=== PATIENT | female | born 1975 | race Caucasian/White ===

== ENCOUNTER 2022-11-27 12:28 | Emergency (ER) | payer BC, SELFPAY ==
[2022-11-27 12:34] VITALS: BP 115/74; PULSE 96; RESP 18; TEMP 36.5; O2SAT 100; BMI 23.7
--- NOTE | 2022-11-27 12:48 | CRLHL7_ITS ---
For Patients: As a result of the Century Cures Act, medical imaging exams and procedure reports are released immediately into your electronic medical record. You may view this report before your referring provider. If you have questions, please contact your health care provider. INDICATION: Lower abdominal pain.. TECHNIQUE: Ultrasound pelvis transabdominal and transvaginal for better assessment or to better visualize the endometrium. Real-time sonographic images with spectral and color Doppler imaging of the ovaries were obtained. COMPARISON: None. FINDINGS: Uterus: 9.1 x 4.3 x 5.0 cm. Normal echotexture of the myometrium. No masses. A few tiny anechoic cysts are identified in the myometrium near the fundus. Endometrium: Transvaginal imaging was performed to better evaluate the endometrium. Endometrial thickness measures 11 mm. No sign of endometrial mass or fluid. Right ovary measures 3.5 x 1.9 x 2.5 cm and left ovary measures 3.9 x 1.9 x 2.6 cm. There is a 2.1 x 1.7 x 2.3 centimeter cyst in the left ovary with internal heterogeneous echogenicity. Normal arterial and venous blood flow is demonstrated in both ovaries. Cul-de-sac: Trace free fluid. IMPRESSION: Probable left ovarian hemorrhagic cyst. A few tiny cysts in the fundal myometrium of questionable clinical significance. Findings may be seen in early or mild adenomyosis although no other findings to support this are noted. Dictated by Navjot Ruano MD @ 11/27/2022 2:22:01 PM (Electronically Signed)
--- NOTE | 2022-11-27 12:50 | ED.GENADULT ---
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 She has had pelvic ovarian cysts before and states it feels similar. She is about mid cycle in her menstruations cycle. She has had no dysuria frequency diarrhea no chest pain, no breathing problem. No fevers. No nausea or vomiting. The patient reports no vaginal bleeding or discharge. She describes pain is present all the time but worsening in improving at times it is across her lower abdomen primarily she points a little bit more to the right of midline. She has had no intra-abdominal surgery of significance. She had takes several medications for depression anxiety. Related Data Home Medications Medication Instructions Recorded Confirmed alprazolam 0.25 mg tablet mg 11/27/22 fluoxetine 20 mg tablet mg 11/27/22 quetiapine 25 mg tablet mg 11/27/22 Previous Rx's Medication Instructions Recorded ketorolac 10 mg tablet 10 mg PO Q8H PRN pain #10 tabs 11/27/22 Allergies Allergy/AdvReac Type Severity Reaction Status Date / Time No Known Drug Allergies Allergy Verified 11/27/22 12:38 Review of Systems Status of ROS: Reports: 10 or more systems reviewed and unremarkable except as noted in History and below PFSH [facility] Social History Smoking Status: Never smoker How often do you have a drink containing alcohol: never AUDIT-C Alcohol total score: 0 Non-prescribed substance use: denies use service: No Exam Narrative: Exam Narrative: Objective: Vital signs unremarkable O2 sat is falsely reported at 199, which I assume is 99. HEENT is unremarkable no facial asymmetry no scleral icterus pulses regular abdomen benign soft since there is some very mild tenderness in her periumbilical area and just below umbilicus right greater than left, no rebound no peritonitis no masses. Denies back pain Extremities good perfusion neurologic nonfocal Skin warm and dry Const: Vital Signs, click to edit/add: Vital Signs - 24 hr 11/27/22 12:34 Temperature 97.7 F Pulse Rate [Right Pulse Oximeter] 96 Respiratory Rate 18 Blood Pressure [Ri ght Upper Arm] 115/74 Pulse Oximetry 100 Oxygen Delivery Me thod Room Air Course Vital Signs Vital signs: Initial Vital Signs Temperature 97.7 F 11/27/22 12:34 Temperature Source Temporal Artery Scan 11/27/22 12:34 Pulse Rate 96 11/27/22 12:34 Respiratory Rate 18 11/27/22 12:34 Blood Pressure 115/74 11/27/22 12:34 Blood Pressure Mean 87 11/27/22 12:34 Blood Pressure Position Sitting 11/27/22 12:34 Pulse Oximetry 100 11/27/22 12:34 Oxygen Delivery Method 11/27/22 12:34 Vital Signs Temperature 97.7 F 11/27/22 12:34 Pulse Rate 96 11/27/22 12:34 Respiratory Rate 18 11/27/22 12:34 Blood Pressure 115/74 11/27/22 12:34 Pulse Oximetry 100 11/27/22 12:34 Oxygen Delivery Method 11/27/22 12:34 Temperature 97.7 F 11/27/22 12:34 Pulse Rate 96 11/27/22 12:34 Respiratory Rate 18 11/27/22 12:34 Blood Pressure 115/74 11/27/22 12:34 Pulse Oximetry 100 11/27/22 12:34 Oxygen Delivery Method 11/27/22 12:34 Medical Decision Making MDM Narrative Medical decision making narrative: Patient is a 47-year-old female with 24 hour history of lower abdominal pain mid cycle in her menstrual cycle, with some lower abdominal radiation to her back. Will check a urinalysis to rule out kidney stone, ultrasound to rule out ovarian cyst or torsion. Will check laboratory studies LFT electrolytes CBC CRP. Will give Toradol IV as well as IV fluid, she reports her sick for another has had a vasectomy so is unlikely, will for completeness do a test. Disposition pending findings above. Addendum: Patient feels markedly better after the Toradol. The patient has a left hemorrhagic cyst. Good blood flow in both ovaries. No evidence of torsion. Given her significant pain relief will wait for additional lab testing get back in the discharge her home on Toradol as needed, Tylenol as needed, fluids rest light activity off work for couple days, recheck with primary care in 48 hours if not completely resolved or other changes. Lab Data Labs: Lab Results 11/27/22 11/27/22 11/27/22 Range/Units 13:25 13:25 13:25 WBC 7.51 (4.50-11.00) K/uL RBC 4.53 (4.00-5.20) m/uL Hgb 13.5 (12.0-16.0) gm/dL Hct 41.0 (33.0-51.0) % MCV 91 (80-100) fL MCH 30 (26-34) pg MCHC 33 (32-36) gm/dL RDW Coeff of Toan 12.9 (11.5-15.5) % Plt Count 260 (140-440) K/uL Neut % (Auto) 65.1 (42.0-72.0) % Lymph % (Auto) 24.5 (20-44) % Glades % (Auto) 6.9 (0.0-11.0) % Eos % (Auto) 2.9 (0.0-7.0) % Baso % (Auto) 0.5 (0.0-3.0) % Neut # (Auto) 4.88 (1.7-7.0) K/uL Lymph # (Auto) 1.84 (0.90-2.90) K/uL Glades # (Auto) 0.50 (0.00-0.90) K/UL Eos # (Auto) 0.22 (0.00-0.50) K/uL Baso # (Auto) 0.04 (0.00-0.30) K/uL Sodium 140 (135-149) mmol/L Potassium 3.9 (3.6-5.1) mmol/L Chloride 103 (96-114) mmol/L Carbon Dioxide 30 (20-32) mmol/L BUN 14 (5-24) mg/dL Creatinine 0.8 (0.5-1.5) mg/dL Estimated Creat Clear 94.01 Estimated GFR 91 ml/min Glucose 91 (60-115) mg/dL Calcium 8.8 (8.4-10.6) mg/dL Total Bilirubin 0.4 (0.1-1.5) mg/dL Direct Bilirubin 0.2 (0.0-0.5) mg/dL AST 28 (12-35) U/L ALT 31 (4-35) U/L Alkaline Phosphatase 55 (40-150) U/L C-Reactive Protein < 0.5 L (0.5-1.0) mg/dL Total Protein 7.5 (6.0-8.3) g/dL Albumin 4.2 (3.3-5.0) g/dL Amylase 109 H (18-89) U/L HCG, Qual Negative (Negative) Urine Color (Yellow) Urine Appearance (Clear) Urine pH (5.0-8.5) Ur Specific [place] (1.000-1.030) Urine Protein (Negative) Urine Glucose (UA) (Negative) Urine Ketones (Negative) Urine Blood (Negative) Urine Nitrite (Negative) Urine Bilirubin (Negative) Urine Urobilinogen (0.2-1.0) Ur Leukocyte Esterase (Negative) Urine RBC (0-2) Urine WBC (0-5) Ur Squamous Epith Cells (None-Few) Urine Bacteria (None) 11/27/22 Range/Units 13:55 WBC (4.50-11.00) K/uL RBC (4.00-5.20) m/uL Hgb (12.0-16.0) gm/dL Hct (33.0-51.0) % MCV (80-100) fL MCH (26-34) pg MCHC (32-36) gm/dL RDW Coeff of Toan (11.5-15.5) % Plt Count (140-440) K/uL Neut % (Auto) (42.0-72.0) % Lymph % (Auto) (20-44) % Glades % (Auto) (0.0-11.0) % Eos % (Auto) (0.0-7.0) % Baso % (Auto) (0.0-3.0) % Neut # (Auto) (1.7-7.0) K/uL Lymph # (Auto) (0.90-2.90) K/uL Glades # (Auto) (0.00-0.90) K/UL Eos # (Auto) (0.00-0.50) K/uL Baso # (Auto) (0.00-0.30) K/uL Sodium (135-149) mmol/L Potassium (3.6-5.1) mmol/L Chloride (96-114) mmol/L Carbon Dioxide (20-32) mmol/L BUN (5-24) mg/dL Creatinine (0.5-1.5) mg/dL Estimated Creat Clear Estimated GFR ml/min Glucose (60-115) mg/dL Calcium (8.4-10.6) mg/dL Total Bilirubin (0.1-1.5) mg/dL Direct Bilirubin (0.0-0.5) mg/dL AST (12-35) U/L ALT (4-35) U/L Alkaline Phosphatase (40-150) U/L C-Reactive Protein (0.5-1.0) mg/dL Total Protein (6.0-8.3) g/dL Albumin (3.3-5.0) g/dL Amylase (18-89) U/L HCG, Qual (Negative) Urine Color Yellow (Yellow) Urine Appearance Clear (Clear) Urine pH 7.0 (5.0-8.5) Ur Specific [place] 1.020 (1.000-1.030) Urine Protein Negative (Negative) Urine Glucose (UA) Negative (Negative) Urine Ketones Negative (Negative) Urine Blood Negative (Negative) Urine Nitrite Negative (Negative) Urine Bilirubin Negative (Negative) Urine Urobilinogen 0.2 (0.2-1.0) Ur Leukocyte Esterase Negative (Negative) Urine RBC 0-2 (0-2) Urine WBC 0-2 (0-5) Ur Squamous Epith Cells Few (None-Few) Urine Bacteria None (None) Discharge Plan Discharge Clinical Impression: Abdominal pain, Hemorrhagic cyst of left ovary Patient Disposition: Home, Self-Care Condition: Improved Additional Instructions: Rest, light activity, Tylenol or Toradol as needed, off work for couple of days no written. Recheck with primary care and update a couple of days. Return to ED sooner problems or concerns. Activity Level: Light activity Discharge Diet: Regular Prescriptions: New ketorolac 10 mg tablet 10 mg PO Q8H PRN (Reason: pain) Qty: 10 0RF No Action quetiapine 25 mg tablet alprazolam 0.25 mg tablet Label Comments: TAKE 1 TABLET BY MOUTH THREE TIMES DAILY NEEDED FOR ANXIETY fluoxetine 20 mg tablet Label Comments: TAKE 2 TABLETS BY MOUTH EVERY MORNING ALONG WITH 60 MG TABLET FOR 100 MG TOTAL DAILY Stand Alone Forms: [facility] Info Instructions
[2022-11-27] MEDS: KETOROLAC 30 MG/ML inj IVP (13:25)
[2022-11-27 13:33] LABS: Basophils Absolute Auto 0.04 K/uL (0.00-0.30); Basophils Percent Auto 0.5 % (0.0-3.0); Eosinophils Absolute Auto 0.22 K/uL (0.00-0.50); Eosinophils Percent Auto 2.9 % (0.0-7.0); Hemoglobin* 13.5 gm/dL (12.0-16.0); Immature Granulocytes Abs Auto 0.01 K/uL (0.00-0.30); Immature Granulocytes Pct Auto 0.1 %; Lymphocytes Absolute Auto 1.84 K/uL (0.90-2.90); Lymphocytes Percent Auto 24.5 % (20-44); Mean Corpuscular HGB Conc 33 gm/dL (32-36); Mean Corpuscular Hemoglobin 30 pg (26-34); Mean Corpuscular Volume 91 fL (80-100); Monocytes Percent Auto 6.9 % (0.0-11.0); Neutrophils Absolute Auto 4.88 K/uL (1.7-7.0); Neutrophils Percent Auto 65.1 % (42.0-72.0); Platelet Count* 260 K/uL (140-440); RDW Coefficient of Variation % 12.9 % (11.5-15.5); Red Blood Count 4.53 m/uL (4.00-5.20); White Blood Count* 7.51 K/uL (4.50-11.00)
[2022-11-27 13:42] LABS: Slide Review Reflex No
[2022-11-27] MEDS: 0.9 % SODIUM CHLORIDE 1000 ml 1,000 ML 6000 ML IV (13:52)
[2022-11-27 14:24] LABS: Appearance Urine Clear (Clear); Bilirubin Urine Negative (Negative); Blood Urine Negative (Negative); Color Urine Yellow (Yellow); Glucose Urine Negative (Negative); Ketones Urine Negative (Negative); Leukocyte Esterase Urine Negative (Negative); Nitrite Urine Negative (Negative); Protein Urine Negative (Negative); Urobilinogen Urine 0.2 (0.2-1.0)
[2022-11-27 14:33] LABS: RBC Urine 0-2 (0-2); Squamous Epithelial Cell Urine Few (None-Few); WBC Urine 0-2 (0-5)
[2022-11-27 14:36] LABS: Albumin* 4.2 g/dL (3.3-5.0); Chloride* 103 mmol/L (96-114)
[2022-11-27 14:37] LABS: Potassium* 3.9 mmol/L (3.6-5.1); Sodium* 140 mmol/L (135-149)
[2022-11-27 14:39] LABS: Amylase* 109 U/L (18-89); Aspartate Amino Transferase* 28 U/L (12-35); Bilirubin Direct* 0.2 mg/dL (0.0-0.5); Bilirubin Total* 0.4 mg/dL (0.1-1.5); Carbon Dioxide* 30 mmol/L (20-32); Creatinine* 0.8 mg/dL (0.5-1.5); Est. Creatinine Clearance* 94.01; Estimated Glomerular Filt Rate 91 ml/min; Total Protein* 7.5 g/dL (6.0-8.3)
[2022-11-27 14:40] LABS: Alanine Aminotransferase* 31 U/L (4-35); Alkaline Phosphatase* 55 U/L (40-150); Blood Urea Nitrogen* 14 mg/dL (5-24); Calcium* 8.8 mg/dL (8.4-10.6); Glucose* 91 mg/dL (60-115)
[2022-11-27 14:42] LABS: C Reactive Protein* < 0.5 mg/dL (0.5-1.0)
[2022-11-27 14:46] LABS: HCG Qualitative Serum* Negative (Negative)
== END 2022-11-27 15:18 | disposition home or self-care (01) ==
PROVIDERS: Emergency Provider Family Medicine; PCP Family Medicine
DX: N83.202 Unspecified ovarian cyst, left side (principal); R10.9 Unspecified abdominal pain
CPT/HCPCS: 36415; 76830; 80048; 80076; 81001; 82150; 84703; 85025; 86140; 87086; 93976; 96361; 96374; 99284; J1885; J7030

== ENCOUNTER 2023-06-12 14:52 | Emergency (ER) | payer OTHER, SELFPAY ==
[2023-06-12] VITALS (22 sets, daily range): BP systolic 90–120; BP diastolic 50–84; PULSE 75–97; RESP 189; TEMP 36.6; O2SAT 77–100; BMI 25.1
[2023-06-12] MEDS: EPINEPHrine 0.3 MG PEN IM (14:57)
[2023-06-12] MEDS: 0.9 % SODIUM CHLORIDE 1000 ml 1,000 ML IV (14:58)
[2023-06-12] MEDS: NALOXONE 1 MG/ML SYRINGE 2 MG IV (15:02)
[2023-06-12 15:16] LABS: Glucose, Point-of-Care* 108 mg/dl (60-115)
[2023-06-12 15:16] LABS: HCO3 VBG 21 mmol/L (21-28); Lactate* 2.5 mmol/L (0.5-1.9); PCO2 VBG 25 mmHG (40-50); PO2 VBG 89.4 mmHG (25-47)
[2023-06-12 15:17] LABS: Sodium* 135 mmol/L (135-149)
[2023-06-12 15:18] LABS: Basophils Percent Auto 0.3 % (0.0-3.0); Eosinophils Percent Auto 1.1 % (0.0-7.0); Hematocrit 40.8 % (33.0-51.0); Hemoglobin* 13.5 gm/dL (12.0-16.0); Immature Granulocytes Pct Auto 0.3 %; Lymphocytes Percent Auto 32.1 % (20-44); Mean Corpuscular HGB Conc 33 gm/dL (32-36); Mean Corpuscular Hemoglobin 30 pg (26-34); Mean Corpuscular Volume 90 fL (80-100); Monocytes Percent Auto 7.2 % (0.0-11.0); Platelet Count* 336 K/uL (140-440); RDW Coefficient of Variation % 12.7 % (11.5-15.5); Red Blood Count 4.56 m/uL (4.00-5.20); White Blood Count* 14.21 K/uL (4.50-11.00)
[2023-06-12 15:19] LABS: Slide Review Reflex No
[2023-06-12] MEDS: LORazepam 2 MG/ML inj 1 MG IVP (15:19)
--- NOTE | 2023-06-12 15:31 | ED_ITS ---
HPI - General Adult General Date Seen: 06/12/23 Chief complaint: Altered Mental Status Stated complaint: trouble breathing Time Seen by Provider: 06/12/23 15:16 History of Present Illness HPI narrative: 47-year-old female who arrived to the ER today by private car. She was brought in by her roommate. History is limited. Initial history is from her roommate. 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 She had come to tell him that she had taken something and was reacting. He brought her here. In route she was having trouble breathing, sweaty, confused, drowsy. As far as he knows he does not know what medication she is on, or if she has any allergies. Unknown if she uses any substances. Unclear what she might be reacting to. No definite known chemicals or fertilizer ears or other substances in their home. After initial resuscitation patient is able to provide more history. 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 She had visited someone in their home today but does not know she was exposed to anything. She went to [employer] and got a expensive chocolate bar that was made within the grocery store. As far she knows it did not contain knots. It is impossible to exclude that it was there were nuts in it or that it might have been exposed exposed or made an environment with knots. After eating a chocolate bar she began to feel tingling as in her throat. She knew she was reacting. She began to have hives on her body including her chest, back, and upper legs. She took Benadryl 50 mg p.o. prior to arrival. Related Data Home Medications Medication Instructions Recorded Confirmed alprazolam 0.25 mg tablet mg 11/27/22 fluoxetine 20 mg tablet mg 11/27/22 quetiapine 25 mg tablet mg 11/27/22 Previous Rx's Medication Instructions Recorded ketorolac 10 mg tablet 10 mg PO Q8H PRN pain #10 tabs 11/27/22 diphenhydramine HCl 25 mg capsule 25 mg PO Q6H PRN allergy symptoms 06/12/23 (Benadryl) #20 caps epinephrine 0.3 mg/0.3 mL 0.3 mg (0.3 mL) IM Q5-15M PRN 06/12/23 injection syringe anaphylaxis #2 ea prednisone 20 mg tablet 60 mg (3 x 20 mg) PO DAILY 3 days 06/12/23 #9 tabs Allergies Allergy/AdvReac Type Severity Reaction Status Date / Time No Known Drug Allergies Allergy Verified 11/27/22 12:38 Review of Systems Narrative: Limited [facility] Social History Smoking Status: Never smoker How often do you have a drink containing alcohol: never AUDIT-C Alcohol total score: 0 Non-prescribed substance use: denies use service: No Exam Narrative: Exam Narrative: Primary survey: A colon breathing spontaneously. No definite stridor but when she is breathing out she has a moany voice. I suspect this is probably voluntary stridor rather than true airway edema. No inspiratory stridor. She is moaning repetitively, ?help me, help me?. She is tachypneic. She is diaphoretic. However heart rate and blood pressure are normal. Tongue, and visualized posterior oropharynx are normal. No signs of edema. Face normal. B: Despite above findings, auscultation of bilateral lung sounds is clear. No wheezing. C: Initial blood pressure 96/50. Heart rate in the 70s once we get her on the monitor. Her skin is pale and diaphoretic. Hives noted on abdomen and thighs, possible allergic reaction. Epinephrine given immediately. D: Initially moaning, not answering questions. Responding only to painful stimuli. GCS = 8 no definite focal deficits. Pupils are mydriatic. Narcan 2 mg given-no response. Constitutional: Appears well-developed and well-nourished. Initially pale, diaphoretic, hyperventilating, moaning. After initial interventions including epinephrine and Narcan her hives resolved. She still has signs of excoriation on her body. Still moaning, tremulous. Appears to be anxious. Ativan 1 mg IV led to improvement. Decreased tremulousness, increase conversant allergy. History HENT: Head: Atraumatic. Nose: Nose normal. Mouth/Throat: Oral mucosa is clear and moist. no trismus. Pharynx normal. Tonsils symmetric. No tonsillar enlargement, erythema, or exudate. Eyes: Conjunctivae normal. EOM normal. Pupils equal, round, and reactive to light. No scleral icterus. Neck: Normal range of motion. Neck supple. No tracheal deviation present. Cardiovascular: Normal rate, regular rhythm. No gallop. No friction rub. No murmur heard. Symmetric radial artery pulses Pulmonary/Chest: Effort normal. No stridor. No respiratory distress. No wheezes. No rales. No rhonchi . No tenderness. Abdominal: Soft. Bowel sounds normal. No distension. No mass. No tenderness. No rebound. No guarding. Musculoskeletal: RUE: Normal range of motion. No tenderness. No deformity LUE: Normal range of motion. No tenderness. No deformity RLE: Normal range of motion. No edema. No tenderness. No deformity LLE: Normal range of motion. No edema. No tenderness. No deformity Lymph: No cervical adenopathy. Neurological: Initially very drowsy, confused, not following commands. GCS was 8. After initial resuscitation, hives resolved after epi. She was still very anxious, tremulous, confused. After Ativan she is more alert. She is able to provide history. She she becomes alert and oriented x3. She is able to open her eyes. More conversant. No focal deficits. Skin: Initially pale and diaphoretic. She did have scattered hives located on her lower abdomen, upper legs. She has evidence for excoriations on her chest under her breasts, on her flanks, and on her posterior/medial thighs.. Neck, face, head are normal- rash noted. Psychiatric: Initially very limited. Unable to initially obtain any information. After initial resuscitation and Ativan she is more calm and conversant. She is able to describe the HPI as above. Const: Vital Signs, click to edit/add: Vital Signs - 24 hr 06/12/23 15:07 06/12/23 15:33 06/12/23 15:34 Temperature 97.8 F Pulse Rate 81 82 Pulse Rate [Right] 75 Respiratory Rate 189 H Blood Pressure 120/52 L Blood Pressure [Ri ght Upper Arm] 90/50 L Pulse Oximetry 96 100 Oxygen Delivery Me thod Room Air 06/12/23 15:36 06/12/23 15:41 06/12/23 15:45 Temperature Pulse Rate 86 96 79 Pulse Rate [Right] Respiratory Rate Blood Pressure 114/84 112/69 Blood Pressure [Ri ght Upper Arm] Pulse Oximetry 100 93 100 Oxygen Delivery Me thod 06/12/23 15:46 06/12/23 15:51 06/12/23 15:56 Temperature Pulse Rate 79 79 81 Pulse Rate [Right] Respiratory Rate Blood Pressure 113/69 113/61 109/78 Blood Pressure [Ri ght Upper Arm] Pulse Oximetry 100 100 100 Oxygen Delivery Me thod 06/12/23 16:00 06/12/23 16:01 06/12/23 16:07 Temperature Pulse Rate 77 81 80 Pulse Rate [Right] Respiratory Rate Blood Pressure 115/66 112/71 Blood Pressure [Ri ght Upper Arm] Pulse Oximetry 77 L 100 100 Oxygen Delivery Me thod 06/12/23 16:12 06/12/23 16:33 Temperature Pulse Rate 82 Pulse Rate [Right] Respiratory Rate Blood Pressure 110/71 Blood Pressure [Ri ght Upper Arm] Pulse Oximetry 100 Oxygen Delivery Me thod Course Course Hospital Course: Recheck-improved after Ativan. Much calmer, less tremulous. Reevaluation(s) Reevaluation #1: Recheck-16 30. Patient looks 100% better. She is alert, calm, breathing easily, smiling. No tremulousness, anxiety. No trouble breathing. Vital stable. Was just up to the bathroom. It appears at this time that she was having an allergic reaction as clearly evidence by the hives present on initial exam and the residual excoriations. There is no residual hives. Suspect that her altered mental status was probably related to panic attack. Will hold off on a drug screen. Likely would not be of clinical benefit at this point. Urine sample discarded. Vital Signs Vital signs: Initial Vital Signs Temperature 97.8 F 06/12/23 15:07 Temperature Source Temporal Artery Scan 06/12/23 15:07 Pulse Rate 75 06/12/23 15:07 Pulse Rhythm Regular 06/12/23 15:07 Respiratory Rate 189 H 06/12/23 15:07 Blood Pressure 90/50 L 06/12/23 15:07 Blood Pressure Mean 63 L 06/12/23 15:07 Oxygen Delivery Method Room Air 06/12/23 15:07 Vital Signs Temperature 97.8 F 06/12/23 15:07 Pulse Rate 75 06/12/23 15:07 Respiratory Rate 189 H 06/12/23 15:07 Blood Pressure 90/50 L 06/12/23 15:07 Oxygen Delivery Method Room Air 06/12/23 15:07 Temperature 97.8 F 06/12/23 15:07 Pulse Rate 82 06/12/23 16:33 Respiratory Rate 189 H 06/12/23 15:07 Blood Pressure 110/71 06/12/23 16:12 Pulse Oximetry 100 06/12/23 16:33 Oxygen Delivery Method Room Air 06/12/23 15:07 Medical Decision Making MDM Narrative Medical decision making narrative: 47-year-old female brought to the ER today by her roommate for evaluation of altered mental status, trouble breathing, hives. Initial differential is quite broad. With signs of hives on her thighs, low back. She also had pale skin, diaphoresis, we were concerned about possible anaphylaxis. We administered IM epinephrine as soon as we will get the patient into her ER room and onto ER bed. While we were doing this we also got her on our monitor, pulse ox, got measured vital signs, placed on the hospital monitor, established IV. After the epinephrine her hives resolved. Her repeat skin exam is showed evidence for excoriations but no ongoing urticaria or hives. She also was quite altered, drowsy, confused. Differential included possible substance ingestion such as alcohol, opiate, or other drugs. Consider possible overdose. She did not have miosis. No response to empiric Narcan. Blood sugar normal. Remained not able to provide any further information about her medical history or what she might have ingested. We considered possible intracranial hemorrhage as a cause for altered mental status and considered CT but Yam[place] was clearing after Ativan, GCS is now improved and she is alert and oriented, will hold off on that imaging. No fever here to suggest meningitis or encephalitis. Workup does show evidence for leukocytosis with white count of 14.1. VBG shows a respiratory alkalosis with a pH of 753, pCO2 of 25. This likely reflects hyperventilation during presentation. BMP shows normal sodium of 135, normal potassium, slightly low bicarb at 18. Normal kidney function. LFTs are normal. Lactic acid mildly elevated 2.5. test negative. No reported history of seizures per the cover making machine operator. He saw her conversant at home, and she became progressively more drowsy EN route. No seizure activity here in the ER. Alcohol, salicylate, acetaminophen levels are negative. She has sinus rhythm on the monitor. Troponin negative. Discussed with my partner, Dr. Flaherty. Will monitor for additional hour after appy. If no recurrent symptoms, will discharge as per my plan. If she has recurrent hives or anaphylaxis symptoms, will require repeat treatment and disposition accordingly. Critical care time: Critical care time for this patient was 35 minutes. Time was spent in her initial evaluation and resuscitation, and multiple recurrent rechecks revealing her improvement. She presented with hives, pallor and diaphoresis, altered mental status and concern was for possible life-threatening anaphylaxis. She received IM epinephrine. She had persistently altered mental status, creating a broad differential, consideration for airway protection,. Ultimately months status cleared after anxiolysis. She is now improved. Lab Data Labs: Lab Results 06/12/23 06/12/23 06/12/23 Range/Units 15:00 15:00 15:11 WBC 14.21 H (4.50-11.00) K/uL RBC 4.56 (4.00-5.20) m/uL Hgb 13.5 (12.0-16.0) gm/dL Hct 40.8 (33.0-51.0) % MCV 90 (80-100) fL MCH 30 (26-34) pg MCHC 33 (32-36) gm/dL RDW Coeff of Toan 12.7 (11.5-15.5) % Plt Count 336 (140-440) K/uL Neut % (Auto) 59.0 (42.0-72.0) % Lymph % (Auto) 32.1 (20-44) % [place] % (Auto) 7.2 (0.0-11.0) % Eos % (Auto) 1.1 (0.0-7.0) % Baso % (Auto) 0.3 (0.0-3.0) % Neut # (Auto) 8.40 H (1.7-7.0) K/uL Lymph # (Auto) 4.60 H (0.90-2.90) K/uL [place] # (Auto) 1.00 H (0.00-0.90) K/UL Eos # (Auto) 0.20 (0.00-0.50) K/uL Baso # (Auto) 0.00 (0.00-0.30) K/uL Abs Immat Gran (auto) 0.00 (0.00-0.30) K/uL Imm/Tot Granulo (auto) 0.3 % VBG pH 7.530 H (7.32-7.43) VBG pCO2 25 L (40-50) mmHG VBG pO2 89.4 H (25-47) mmHG VBG HCO3 21 (21-28) mmol/L Sodium 135 (135-149) mmol/L Potassium 3.7 (3.6-5.1) mmol/L Chloride 105 (96-114) mmol/L Carbon Dioxide 18 L (20-32) mmol/L BUN 13 (5-24) mg/dL Creatinine 0.8 (0.5-1.5) mg/dL Estimated Creat Clear 84.54 Estimated GFR 91 ml/min Glucose 107 (60-115) mg/dL Lactate 2.5 H (0.5-1.9) mmol/L Calcium 8.8 (8.4-10.6) mg/dL Total Bilirubin 0.2 (0.1-1.5) mg/dL AST 23 (12-35) U/L ALT 26 (4-35) U/L Alkaline Phosphatase 62 (40-150) U/L Total Protein 7.3 (6.0-8.3) g/dL Albumin 4.1 (3.3-5.0) g/dL HCG, Qual Negative (Negative) Salicylates < 1.0 L (1.0-10) mg/dL Acetaminophen < 10.0 L (10.0-30.0) ug/mL Ethyl Alcohol < 0.01 L Cancelled (0.01-0.03) % POC Glucose (60-115) mg/dl POC Troponin I 0.00 L (0.01-0.04) ng/ml 06/12/23 Range/Units 15:15 WBC (4.50-11.00) K/uL RBC (4.00-5.20) m/uL Hgb (12.0-16.0) gm/dL Hct (33.0-51.0) % MCV (80-100) fL MCH (26-34) pg MCHC (32-36) gm/dL RDW Coeff of Toan (11.5-15.5) % Plt Count (140-440) K/uL Neut % (Auto) (42.0-72.0) % Lymph % (Auto) (20-44) % [place] % (Auto) (0.0-11.0) % Eos % (Auto) (0.0-7.0) % Baso % (Auto) (0.0-3.0) % Neut # (Auto) (1.7-7.0) K/uL Lymph # (Auto) (0.90-2.90) K/uL [place] # (Auto) (0.00-0.90) K/UL Eos # (Auto) (0.00-0.50) K/uL Baso # (Auto) (0.00-0.30) K/uL Abs Immat Gran (auto) (0.00-0.30) K/uL Imm/Tot Granulo (auto) % VBG pH (7.32-7.43) VBG pCO2 (40-50) mmHG VBG pO2 (25-47) mmHG VBG HCO3 (21-28) mmol/L Sodium (135-149) mmol/L Potassium (3.6-5.1) mmol/L Chloride (96-114) mmol/L Carbon Dioxide (20-32) mmol/L BUN (5-24) mg/dL Creatinine (0.5-1.5) mg/dL Estimated Creat Clear Estimated GFR ml/min Glucose (60-115) mg/dL Lactate (0.5-1.9) mmol/L Calcium (8.4-10.6) mg/dL Total Bilirubin (0.1-1.5) mg/dL AST (12-35) U/L ALT (4-35) U/L Alkaline Phosphatase (40-150) U/L Total Protein (6.0-8.3) g/dL Albumin (3.3-5.0) g/dL HCG, Qual (Negative) Salicylates (1.0-10) mg/dL Acetaminophen (10.0-30.0) ug/mL Ethyl Alcohol (0.01-0.03) % POC Glucose 108 (60-115) mg/dl POC Troponin I (0.01-0.04) ng/ml Critical Care Time Critical Care Time Critical Care Time: Yes Attestation: The patient required my highest level preparedness to intervene emergently and I personally spent this critical care time directly and personally managing the patient. This critical care time included: Obtaining a history; Examining the patient; Pulse oximetry; Ordering and reviewing of studies; Arranging urgent treatment with development of a management plan; Evaluation of patients response to treatment; Frequent reassessment discussions with other providers. This critical care time was performed to assess and manage the high probability of imminent life-threatening deterioration that could result in multiorgan failure. It was exclusive of separate billable procedures and treating other patients and teaching time. Total Critical Care Time in Minutes: 35 Discharge Plan Discharge Clinical Impression: Allergic reaction, Panic attack Patient Disposition: Home, Self-Care Instructions: General Allergic Reaction (ED), Panic Attack (ED) Prescriptions: New epinephrine 0.3 mg/0.3 mL syringe 0.3 mg IM Q5-15M PRN (Reason: anaphylaxis) Qty: 2 1RF Rx Instructions: do not exceed 3 doses per episode prednisone 20 mg tablet 60 mg PO DAILY 3 Days Qty: 9 0RF diphenhydramine HCl [Benadryl] 25 mg capsule 25 mg PO Q6H PRN (Reason: allergy symptoms) Qty: 20 0RF No Action quetiapine 25 mg tablet alprazolam 0.25 mg tablet Patient Comments: TAKE 1 TABLET BY MOUTH THREE TIMES DAILY NEEDED FOR ANXIETY fluoxetine 20 mg tablet Patient Comments: TAKE 2 TABLETS BY MOUTH EVERY MORNING ALONG WITH 60 MG TABLET FOR 100 MG TOTAL DAILY ketorolac 10 mg tablet 10 mg PO Q8H PRN (Reason: pain) Qty: 10 0RF Follow Up/Referrals: Mony Crespo MD [Primary Care Provider] - Stand Alone Forms: [employer] Info Instructions
[2023-06-12] MEDS: FAMOTIDINE 10 MG/ML inj 20 MG IVP (15:34)
[2023-06-12] MEDS: METHYLPREDNISOLONE SOD SUCC 62.5 MG/ML (125) 125 MG IVP (15:36)
[2023-06-12 15:37] LABS: Albumin* 4.1 g/dL (3.3-5.0)
[2023-06-12 15:38] LABS: Chloride* 105 mmol/L (96-114); Potassium* 3.7 mmol/L (3.6-5.1)
[2023-06-12 15:40] LABS: Aspartate Amino Transferase* 23 U/L (12-35); Bilirubin Total* 0.2 mg/dL (0.1-1.5); Carbon Dioxide* 18 mmol/L (20-32); Creatinine* 0.8 mg/dL (0.5-1.5); Est. Creatinine Clearance* 84.54; Estimated Glomerular Filt Rate 91 ml/min
[2023-06-12 15:41] LABS: Alanine Aminotransferase* 26 U/L (4-35); Alkaline Phosphatase* 62 U/L (40-150); Blood Urea Nitrogen* 13 mg/dL (5-24); Calcium* 8.8 mg/dL (8.4-10.6); Glucose* 107 mg/dL (60-115); Total Protein* 7.3 g/dL (6.0-8.3)
[2023-06-12 15:44] LABS: Acetaminophen* < 10.0 ug/mL (10.0-30.0); Ethanol* < 0.01 % (0.01-0.03); Salicylate* < 1.0 mg/dL (1.0-10)
--- NOTE | 2023-06-12 15:45 | ED.NURSE ---
Pt O2 satting at ~70% on room air lying flat on the bed. Pt encouraged to take deep breaths, Oxymask placed on pt again at 2L O2. Pt O2 sats recovered to ~97%. notified.
[2023-06-12 15:47] LABS: HCG Qualitative Serum* Negative (Negative)
== END 2023-06-12 18:40 | disposition home or self-care (01) ==
PROVIDERS: Emergency Provider Emergency Medicine; PCP Family Medicine
DX: T78.1XXA Other adverse food reactions, not elsewhere classified, initial encounter (principal); F41.0 Panic disorder [episodic paroxysmal anxiety]
CPT/HCPCS: 36415; 80053; 80143; 80179; 80306; 82077; 82803; 82947; 83605; 84484; 84703; 85025; 93005; 96372; 96374; 96375; 99285; 99291; J0171; J2060; J2310; J2930; J7030; S0028